=== PATIENT | male | born 1960 | race Caucasian/White ===

== ENCOUNTER → 2020-10-28 | Outpatient (CLI) | payer OTHER ==
[~2020-10-28] MED LIST: ASPIRIN EC81 MG PO; ATORVASTATIN CA20 MG PO; CLOPIDOGREL75 MG PO; METOPROLOL SUCC25 MG PO; NITROGLYCERIN0.4 MG SL; ZESTRIL10 MG PO; ZESTRIL30 MG PO
[2020-10-29 14:15] LABS: ALDOLASE 9.8 U/L (3.3-10.3)
[2020-11-08 22:10] LABS: ANTI-EJ AB (RDL) Negative (Negative); ANTI-JO-1 AB (RDL) <20 Units (<20); ANTI-KU AB (RDL) Negative (Negative); ANTI-MDA-5 AB (CADM-140)(RDL) <20 Units (<20); ANTI-MI-2 AB (RDL) Negative (Negative); ANTI-NXP-2 (P140) AB (RDL) <20 Units (<20); ANTI-OJ AB (RDL) Negative (Negative); ANTI-PL-12 AB (RDL) Negative (Negative); ANTI-PL-7 AB (RDL) Negative (Negative); ANTI-PM/SCL-100 AB (RDL) <20 Units (<20); ANTI-SRP AB (RDL) Negative (Negative); ANTI-TIF-1GAMMA AB (RDL) <20 Units (<20); ANTI-U1 RNP AB (RDL) <20 Units (<20); ANTI-U2 RNP AB (RDL) Negative (Negative); ANTI-U3 RNP (FIBRILLARIN)(RDL) Negative (Negative)
== END ==
LOC: LAB 11:01
PROVIDERS: Internal Medicine
DX: R74.8 Abnormal levels of other serum enzymes (principal); D89.9 Disorder involving the immune mechanism, unspecified; M25.50 Pain in unspecified joint; R76.8 Other specified abnormal immunological findings in serum; M79.10 Myalgia, unspecified site; G72.9 Myopathy, unspecified
CPT/HCPCS: 36415; 81001; 82085; 82550; 82570; 83516; 83520; 83874; 84156; 85652; 86140; 86200; 86235

== ENCOUNTER → 2020-11-15 | Outpatient (CLI) | payer OTHER | LOC: EXRD 08:50 | DX: R21 Rash and other nonspecific skin eruption (principal); R63.4 Abnormal weight loss; Z72.0 Tobacco use | CPT/HCPCS: 71046 ==

== ENCOUNTER → 2020-12-16 | Outpatient (CLI) | payer OTHER | LOC: EMI 13:00 | DX: M33.90 Dermatopolymyositis, unspecified, organ involvement unspecified (principal) | CPT/HCPCS: 73718 ==